=== PATIENT | female | born 1980 | race Caucasian/White ===

== ENCOUNTER 2017-04-11 18:55 | Observation (INO) | payer BC ==
[~2017-04-11] VITALS: Ht 157.5 cm; Wt 79.4 kg
[2017-04-11] MEDS ORDERED: PREN1TAB80 PO (20:15)
[2017-04-11] MEDS ORDERED: ASPI-891 PO (20:16)
[2017-04-11] MEDS ORDERED: IRON-24 PO (20:18)
[2017-04-11 21:26] VITALS: BP 118/67
== END 2017-04-11 21:00 | disposition home or self-care (01) ==
LOC: 4S 18:55
PROVIDERS: ADMIT Obstetrics & Gynecology; ATTEND Obstetrics & Gynecology
DX: O26.893 Other specified pregnancy related conditions, third trimester (principal); M79.89 Other specified soft tissue disorders; Z3A.40 40 weeks gestation of pregnancy